=== PATIENT | male | born 1970 | race Caucasian/White ===

== ENCOUNTER 2024-03-21 09:23 | Outpatient (AMB) | payer MEDICAID, SELFPAY ==
[2024-03-21 09:30] VITALS: BP 154/80; PULSE 72; RESP 16; TEMP 36.2; O2SAT 98; BMI 34.3
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
== END 2024-03-21 10:43 | disposition home or self-care (01) ==
LOC: HODAHC 09:23
PROVIDERS: PCP Student in an Organized Health Care Education/Training Program; Referring Provider Student in an Organized Health Care Education/Training Program; Supervising Provider Internal Medicine; Visit Provider Student in an Organized Health Care Education/Training Program
DX: I69.354 Hemiplegia and hemiparesis following cerebral infarction affecting left non-dominant side (principal); R73.03 Prediabetes; I10 Essential (primary) hypertension; E78.5 Hyperlipidemia, unspecified; Z79.82 Long term (current) use of aspirin; Z79.02 Long term (current) use of antithrombotics/antiplatelets; Z76.0 Encounter for issue of repeat prescription
CPT/HCPCS: 99213; G0463

== ENCOUNTER 2024-08-02 08:56 | Outpatient (AMB) | payer MEDICAID, SELFPAY ==
[2024-08-02 09:22] VITALS: BP 128/80; PULSE 71; RESP 18; TEMP 36.6; O2SAT 98; BMI 35.2
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
== END 2024-08-02 10:02 | disposition home or self-care (01) ==
PROVIDERS: PCP Student in an Organized Health Care Education/Training Program; Referring Provider Student in an Organized Health Care Education/Training Program; Supervising Provider Internal Medicine
DX: I10 Essential (primary) hypertension (principal); E78.5 Hyperlipidemia, unspecified; Z86.73 Personal history of transient ischemic attack (TIA), and cerebral infarction without residual deficits; R73.03 Prediabetes; E66.9 Obesity, unspecified; Z68.35 Body mass index [BMI] 35.0-35.9, adult; R25.2 Cramp and spasm; R32 Unspecified urinary incontinence
CPT/HCPCS: 99213; G0463

== ENCOUNTER 2024-08-20 13:12 | Outpatient (AMB) | payer MEDICAID, SELFPAY ==
[2024-08-20 13:36] VITALS: BP 143/81; PULSE 74; RESP 18; TEMP 36.6; O2SAT 97; BMI 35.9
--- NOTE | 2024-08-20 13:36 | ACNOTE_ITS ---
Vital Signs 08/20/24 13:36 Height 1.85 m Height Method Stated Weight 123.037 kg Weight Measurement Method Standing Scale BMI 35.9 BP 143/81 H Blood Pressure Source Automatic Cuff Blood Pressure Location Right Upper Arm Position Sitting Respiration 18 Pulse 74 Pulse Source Monitor Temp 97.8 F Temp Source Temporal Artery Scan Pulse Oximetry (%) 97 Oxygen Delivery Method Room Air Allergies/Meds Allergies & Medications Allergies acetaminophen (From Vicodin) Allergy (Verified 08/02/24 09:23) hydrocodone (From Vicodin) Allergy (Verified 08/02/24 09:23) Medication Reconciliation amlodipine 5 mg tablet 5 mg PO QDAY #30 tabs 08/02/24 [Rx Confirmed 08/22/24] aspirin 81 mg tablet,delayed release (Adult Aspirin Regimen) 81 mg PO QDAY #30 tabs 08/02/24 [Rx Confirmed 08/22/24] pen needle, diabetic 32 gauge x 1/4 (Comfort EZ Pen [place]) #100 ea 08/02/24 [Rx Confirmed 08/22/24] rosuvastatin 20 mg tablet (Crestor) 40 mg (2 x 20 mg) PO QDAY 1 month #60 tabs 08/02/24 [Rx Confirmed 08/22/24] semaglutide 0.25 mg or 0.5 mg (2 mg/3 mL) subcutaneous pen injector (Ozempic) 0.25 mg (0.368 mL) subcut QWEEK 1 month #3 mL 08/02/24 [Rx Confirmed 08/22/24] cetirizine 10 mg capsule (Zyrtec) 10 mg PO QDAY Seasonal Allergies 1 month #30 caps 08/20/24 [Rx Confirmed 08/22/24] fluticasone propionate 50 mcg/actuation nasal spray,suspension (Flonase Allergy Relief) 1 spray intranasal BID 1 month #16 grams 08/20/24 [Rx Confirmed 08/22/24] gabapentin 100 mg capsule 100 mg PO QHS 1 month #30 caps 08/20/24 [Rx Confirmed 08/22/24] losartan 50 mg tablet 50 mg PO QDAY 1 month #30 tabs 08/20/24 [Rx Confirmed 08/22/24] tamsulosin 0.4 mg capsule (Flomax) 0.4 mg PO QHS 1 month #30 caps 08/20/24 [Rx Confirmed 08/22/24] evolocumab 140 mg/mL subcutaneous pen injector (Geoff Vallejo) 420 mg (3 mL) subcut QMONTH Statin intolerance, Hyperlipidemia 1 month #2 mL 08/27/24 [Rx] finasteride 5 mg tablet 5 mg PO QDAY 1 month #30 tabs 08/27/24 [Rx] MA Intake Visit Data Collection New Patient or Established: Established Patient (seen at [facility] within 3 years) Seen by Clinical Staff ONLY (RN/MA): No Pain Present Currently: No Pain scale:: 0 Pain Scale Used: [employer] Required: No PCP or OBGYN visit in last 3 months: Yes Hx Now: No Do You Feel Safe at Home: Yes Authorities Contacted: N/A Smoking Status Smoking Status: Never smoker Immunization / Flu Flu Vaccine in the Last 12 Months: No Flu Vaccine Exclusion Criteria: No Exclusion Criteria Past Medical History Past Medical History NEUROLOGIC: Positive Cerebrovascular Accident CARDIAC: Positive Hypercholesterolemia and Hypertension GENITOURINARY: Positive Benign Prostatic Hyperplasia Social History SMOKING STATUS: Smoking status: Never smoker Patient Portal Questionaires Social History Tobacco History Smoking Status: Never smoker Domestic Abuse History Do You Feel Safe at Home: Yes Review of Systems Report any current symptoms Only answer those that you have currently: Past Medical History Past Medical History Have you ever been diagnosed with any of the following: Neurological Problems Cerebrovascular Accident (CVA): Yes Cardiology Problems Hypercholesterolemia: Yes Hypertension: Yes Genital/Urinary Problems Benign Prostatic Hyperplasia: Yes History of Present Illness HPI Narrative Pt here for a follow up with labs. Reports he is taking his medicines as prescribed, still expressing some statin myopathy. He is wondering about getting referred to a sleep medicine specialist. He says he did not get his Gabapentin. Reports that he is still having trouble peeing, and was not able to do his urine labs. No other complaints at this time. Review of Systems Review of Systems Narrative Review of Systems: Constitutional: No fever, chills, fatigue, weakness, weight loss, +fatigue HEENT: No eye pain, vision loss, ear pain, hearing loss, dysphagia, Cardiovascular: No chest pain, palpitations, edema, pain with walking Respiratory: No cough, wheezing, + SOB GI: No NVD, abdominal pain, constipation, blood in stool, loss of appetite, heartburn Extremities: +swelling in legs, +leg cramps MSK: No back pain, joint pain, joint swelling, + neck pain Neuro: No dizziness, numbness, weakness, headaches, seizures, tremors Psych: No anxiety, depression Objective/Exam Narrative Physical exam: General: AAOx3, NAD, obese pleasant male HEENT: Moist mucous membranes, conjunctiva clear, EOMI, PERRLA, Cardiovascular: S1, S2, radial pulses +2 bilat, RRR Pulmonary: CTAB bilat no cough, no wheezing GI: No tenderness to light or deep palpitation, no guarding, rigidity, rebound tenderness or distension Extremities: trace edema in lower extremities bilaterally, dorsalis pedis pulses +2 bilaterally Neuro: AAOx3, no focal motor or sensory deficits in the UE or LE bilat Psych: Good judgement, thought and behavior. 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 A1c of 6.2 Plan: Primary prevention Will consider diabetic foot exam next visit Repeat Urine Microalbumin Continue Ozempic 0.25 mg inj once a week (2) CVA (cerebral vascular accident): Status: Acute Qualifiers: CVA mechanism: unspecified Qualified Code(s): I63.9 - Cerebral infarction, unspecified Assessment & Plan: Posterior infarct 16mm at [facility] Plan: Continuing Aspirin and statin at this time (3) Hypertension: Status: Acute Qualifiers: Hypertension type: primary hypertension Qualified Code(s): I10 - Essential (primary) hypertension Plan: Continuing Amloidpine Stop lisinopril because of cough Start Losartan 50 mg Blood pressure log Flomax 0.4 mg HS Cardiology referral (4) Hyperlipidemia: Status: Acute Qualifiers: Hyperlipidemia type: unspecified Qualified Code(s): E78.5 - Hyperlipidemia, unspecified Assessment & Plan: Expresses statin mylagias LDL still 74, willl require further optimzation due to CVA hx Previous LDL was 160 Plan: Continue Crestor 20 mg Repatha ordered 420 mg sureclick Inj (twice a week) (5) Encounter for screening colonoscopy: Status: Acute Assessment & Plan: Hgb 12.2 No hx of Colonoscopy No hx of colon cancer in family Plan: FOBT Pending GI referral (6) Statin intolerance: Status: Acute Plan: Repatha ordered as above (7) Obesity (BMI 30.0-34.9): Status: Acute Plan: Continue Ozempic 0.25 mg inj once a week Sleep study (8) Anemia of chronic disease: Status: Acute Assessment & Plan: Ferritin elevated (420s) Normal Iron Hgb 12.2 Plan: Repeat CBC upon next visit PBS Reticulocyte count (9) Urinary dribbling: Status: Acute Plan: Flomax 0.4 mg HS (10) Allergies: Status: Acute Assessment & Plan: With congestion Plan: Flonase and Zyrtec as needed Orders: Orders Occult Blood, Stool (LAB) 08/20/24 Comprehensive Metabolic Panel 08/20/24 Z00.01 - Encounter for general adult medical examination with abnormal findings Urinalysis 08/20/24 Microalbumin, 24hr Urine 08/20/24 Reticulocyte Count 08/20/24 CBC 08/20/24 Path Review Blood Smear 08/20/24 Magnesium 08/20/24 Z00.01 - Encounter for general adult medical examination with abnormal findings Referrals Cardiology E66.811 - Obesity, class 1, E78.5 - Hyperlipidemia, unspecified, I10 - Essential (primary) hypertension, I63.9 - Cerebral infarction, unspecified, R73.03 - Prediabetes Gastroenterology Z12.11 - Encounter for screening for malignant neoplasm of colon Sleep Study Additional Assessment Attending note: I, Keanu Sue MD, attest that I was physically present for the quijano portions of the service and evaluated the patient with the resident and I reviewed and discussed the case with the resident and agree with the resident's findings and plans of care as documented above. Keanu Sue MD Physician Billing Established Patient Established Patient: E/M Level 3-CPT 25457 Office Procedures [facility] Level of Care Nursing/Assessment Patient Status: Established Patient Nursing Assessment/Reassessment: Medication Reconciliation, Update PMH in EMR and Vital Signs Coordination of Care: Complex Care and Chronic Disease 1-5, Consent,records obtained, informed consent, Education Simp Pt/Fam, Results/Orders obtained and Staff clarify orders Established Patient Charge Established Patient Point Assignment: 90 Established Patient Point Charge: Level 3 (80-115) Results Glucose Glucose 125 mg/dL Last Edit by Ashley Espinosa MA on 08/20/24 14:45
== END 2024-08-20 15:15 | disposition home or self-care (01) ==
LOC: HODAHC 13:12
PROVIDERS: PCP Student in an Organized Health Care Education/Training Program; Referring Provider Student in an Organized Health Care Education/Training Program; Supervising Provider Internal Medicine
DX: Z71.2 Person consulting for explanation of examination or test findings (principal); G72.9 Myopathy, unspecified; R39.198 Other difficulties with micturition; R73.03 Prediabetes; Z86.73 Personal history of transient ischemic attack (TIA), and cerebral infarction without residual deficits; Z79.82 Long term (current) use of aspirin; I10 Essential (primary) hypertension; E78.5 Hyperlipidemia, unspecified; Z79.85 Long-term (current) use of injectable non-insulin antidiabetic drugs; D63.8 Anemia in other chronic diseases classified elsewhere; T78.40XA Allergy, unspecified, initial encounter; X58.XXXA Exposure to other specified factors, initial encounter; E66.9 Obesity, unspecified; Z68.35 Body mass index [BMI] 35.0-35.9, adult
CPT/HCPCS: 99213; G0463

== ENCOUNTER 2024-08-27 15:24 | Outpatient (AMB) | payer MEDICAID, SELFPAY ==
--- NOTE | 2024-08-27 17:44 | PD.RESCLINIC ---
Allergies/Meds Allergies & Medications Allergies acetaminophen (From Vicodin) Allergy (Verified 08/02/24 09:23) hydrocodone (From Vicodin) Allergy (Verified 08/02/24 09:23) [place] Intake Visit Data Collection PCP or OBGYN visit in last 3 months: Yes Smoking Status Smoking Status: Never smoker For Televisit only Telemed Video/Phone Visit: Yes Verbal consent obtained for Telemed visit?: Yes Verbal Consent witness name: MARISA RITA LOPEZ Telemed Video/Phone visit w/Clinical Staff: 21-30 min Immunization / Flu Flu Vaccine in the Last 12 Months: No Flu Vaccine Exclusion Criteria: No Exclusion Criteria Past Medical History Past Medical History NEUROLOGIC: Positive Cerebrovascular Accident CARDIAC: Positive Hypercholesterolemia and Hypertension GENITOURINARY: Positive Benign Prostatic Hyperplasia Social History SMOKING STATUS: Smoking status: Never smoker Patient Portal Questionaires Social History Tobacco History Smoking Status: Never smoker Review of Systems Report any current symptoms Only answer those that you have currently: Past Medical History Past Medical History Have you ever been diagnosed with any of the following: Neurological Problems Cerebrovascular Accident (CVA): Yes Cardiology Problems Hypercholesterolemia: Yes Hypertension: Yes Genital/Urinary Problems Benign Prostatic Hyperplasia: Yes History of Present Illness HPI Narrative Patient interaction conducted via telephone. Patient reports doing well. He is complaining that the Flomax is not not relieving all his urinary symptoms symptoms. He is also reporting that he was not able to get his Repatha injection. He is also saying that the gabapentin makes him sleepy and that he is going to continue to take magnesium glycinate for his leg cramps. Said he was able to get his labs done he will follow-up with me on his next visit. No other complaints this time Review of Systems Review of Systems Narrative Review of Systems: Constitutional: No fever, chills, + fatigue, no weakness, weight loss HEENT: No eye pain, vision loss, ear pain, hearing loss, dysphagia, Cardiovascular: No chest pain, palpitations, edema, pain with walking Respiratory: No cough, shortness of breath, wheezing GI: No NVD, abdominal pain, constipation, blood in stool, loss of appetite, heartburn : + urinary dribbling Extremities: No presence of pitting edema, + leg pain bilat MSK: No back pain, joint pain, joint swelling Neuro: No dizziness, numbness, weakness, headaches, seizures, tremors Psych: No anxiety, depression Objective/Exam Narrative Physical exam: Physical exam is limited as patient is out in the office General: NAD Pulmonary: No exertional dyspnea Assessment & Plan Diagnosis / Problem List (1) Urinary dribbling: Status: Acute Assessment & Plan: His symptoms have not improved with Flomax 0.4 mg at night Patient's PSA baseline is unremarkable and this is found on [facility] Patient will need additional agent in conjunction with Flomax Plan: ? Continue Flomax 0.4 mg by mouth at night ? Start finasteride 5 mg by mouth every day (2) Statin intolerance: Status: Acute Assessment & Plan: Patient was not able to receive Repatha as apparently the prescription was not sent Plan: ? Continue with Crestor 20 mg as able ? Repatha as prescribed (3) Hyperlipidemia: Status: Acute Qualifiers: Hyperlipidemia type: unspecified Qualified Code(s): E78.5 - Hyperlipidemia, unspecified Assessment & Plan: As above Plan: ? Continue with Crestor 20 mg as able ? 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
== END 2024-08-27 16:30 | disposition home or self-care (01) ==
LOC: HODAHC 15:24
PROVIDERS: PCP Student in an Organized Health Care Education/Training Program; Referring Provider Student in an Organized Health Care Education/Training Program
DX: N39.43 Post-void dribbling (principal); E78.5 Hyperlipidemia, unspecified
CPT/HCPCS: 99212; G0463

== ENCOUNTER 2024-09-17 13:31 | Outpatient (AMB) | payer MEDICAID, SELFPAY ==
[2024-09-17 13:56] VITALS: BP 149/79; PULSE 67; RESP 19; TEMP 36.5; O2SAT 97; BMI 36.9
--- NOTE | 2024-09-17 13:56 | ACNOTE_ITS ---
Vital Signs 09/17/24 13:56 Height 1.85 m Height Method Stated Weight 126.325 kg Weight Measurement Method Standing Scale BMI 36.9 BP 149/79 H Blood Pressure Source Automatic Cuff Blood Pressure Location Right Upper Arm Position Sitting Respiration 19 Pulse 67 Pulse Source Monitor Temp 97.7 F Temp Source Temporal Artery Scan Pulse Oximetry (%) 97 Oxygen Delivery Method Room Air Allergies/Meds Allergies & Medications Allergies acetaminophen (From Vicodin) Allergy (Verified 08/02/24 09:23) hydrocodone (From Vicodin) Allergy (Verified 08/02/24 09:23) MA Intake Visit Data Collection New Patient or Established: Established Patient (seen at [facility] within 3 years) Seen by Clinical Staff ONLY (RN/MA): No Reason for Visit:: FOLLOW UP Pain Present Currently: 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 PCP or OBGYN visit in last 3 months: Yes Date of Last PCP or OBGYN visit: 08/20/24 Do You Feel Safe at Home: Yes Authorities Contacted: N/A Smoking Status Smoking Status: Never smoker Immunization / Flu Flu Vaccine in the Last 12 Months: No Flu Vaccine Exclusion Criteria: No Exclusion Criteria Past Medical History Past Medical History NEUROLOGIC: Positive Cerebrovascular Accident CARDIAC: Positive Hypercholesterolemia and Hypertension GENITOURINARY: Positive Benign Prostatic Hyperplasia Social History SMOKING STATUS: Smoking status: Never smoker Patient Portal Questionaires Social History Tobacco History Smoking Status: Never smoker Domestic Abuse History Do You Feel Safe at Home: Yes Review of Systems Report any current symptoms Only answer those that you have currently: Past Medical History Past Medical History Have you ever been diagnosed with any of the following: Neurological Problems Cerebrovascular Accident (CVA): Yes Cardiology Problems Hypercholesterolemia: Yes Hypertension: Yes Genital/Urinary Problems Benign Prostatic Hyperplasia: Yes History of Present Illness HPI Narrative Patient examined at bedside today. Patient reports he is doing well. He is inquiring about Repatha at this time. He reports that he stopped taking his Flomax and his finasteride and his symptoms had resolved. He is also wondering when he is going to get his referral for cardiology, sleep medicine and GI. He is wondering about his most recent lab results. He is requesting some refills on medicines. Denies any chest pain or shortness of breath. No other complaints at this time. Review of Systems Review of Systems Narrative Review of Systems: Constitutional: No fever, chills, fatigue, weakness, weight loss HEENT: No eye pain, vision loss, ear pain, hearing loss, dysphagia, Cardiovascular: No chest pain, palpitations, edema, pain with walking Respiratory: No cough, shortness of breath, wheezing GI: No NVD, abdominal pain, constipation, blood in stool, loss of appetite, heartburn Extremities: No presence of pitting edema MSK: No back pain, joint pain, joint swelling Neuro: No dizziness, numbness, weakness, headaches, seizures, tremors Psych: No anxiety, depression Objective/Exam Narrative Physical exam: General: AAOx3, NAD, obese pleasant male HEENT: Moist mucous membranes, conjunctiva clear, EOMI, PERRLA, Cardiovascular: S1, S2, radial pulses +2 bilat, RRR Pulmonary: CTAB bilat no cough, no wheezing GI: No tenderness to light or deep palpitation, no guarding, rigidity, rebound tenderness or distension Extremities: trace edema in lower extremities bilaterally, dorsalis pedis pulses +2 bilaterally Neuro: AAOx3, no focal motor or sensory deficits in the UE or LE bilat Psych: Good judgement, thought and behavior. Cooperative Assessment & Plan Diagnosis / Problem List (1) Vitamin D deficiency: Status: Acute Assessment & Plan: Vitamin D deficient seen on previous labs Plan: Vitamin D3 50,000 units capsule once a week Will reassess within 3 months (2) Erectile disorder: Status: Acute Assessment & Plan: Patient reports having some trouble with erection Plan: Tadalafil 10 mg by mouth as needed (3) Rhinitis: Status: Acute Qualifiers: Rhinitis type: chronic Qualified Code(s): J31.0 - Chronic rhinitis Assessment & Plan: Chronic, on H2 ajay and Flonase Plan: Continue with Zyrtec and Flonase Add Singulair 10 mg every day ENT referral (4) Statin intolerance: Status: Acute Plan: Sent over Repatha injection every 2 weeks (5) Anemia of chronic disease: Status: Acute Plan: CBC upon next visit Peripheral blood smear (6) Hypertension: Status: Acute Qualifiers: Hypertension type: primary hypertension Qualified Code(s): I10 - Essential (primary) hypertension Assessment & Plan: SBP 148 Plan: Continuing with amlodipine 5 mg every day Increasing losartan to 100 mg by mouth every day (7) Chronic fatigue: Status: Acute Plan: Repeat CBC for anemia Will repeat TSH within 3 months B12 oral prescribed (8) Obesity (BMI 30.0-34.9): Status: Acute Assessment & Plan: Currently on Ozempic 0.25 mg injection once a week Plan: Encouraging diet and exercise Will increase Ozempic to 0.5 mg injection once a week Orders: Orders CBC 1 Month Path Review Blood Smear 1 Month Referrals Ears, Nose, and Throat J31.0 - Chronic rhinitis Office Procedures [facility] Level of Care Nursing/Assessment Patient Status: Established Patient Nursing Assessment/Reassessment: Medication Reconciliation, Update PMH in EMR and Vital Signs Coordination of Care: Complex Care and Chronic Disease 1-5, Consent,records obtained, informed consent, 4+ Authorizations needed, Lab and Imaging orders and Results/Orders obtained Established Patient Charge Established Patient Point Assignment: 105 Established Patient Point Charge: Level 3 (80-115)
== END 2024-09-17 14:59 | disposition home or self-care (01) ==
LOC: HODAHC 13:31
PROVIDERS: PCP Student in an Organized Health Care Education/Training Program; Referring Provider Student in an Organized Health Care Education/Training Program; Supervising Provider Internal Medicine
DX: E53.8 Deficiency of other specified B group vitamins (principal); N52.9 Male erectile dysfunction, unspecified; J31.0 Chronic rhinitis; D63.8 Anemia in other chronic diseases classified elsewhere; I10 Essential (primary) hypertension; E66.9 Obesity, unspecified; Z68.36 Body mass index [BMI] 36.0-36.9, adult; Z76.0 Encounter for issue of repeat prescription; Z71.3 Dietary counseling and surveillance
CPT/HCPCS: 99213; G0463

== ENCOUNTER 2024-10-31 14:46 | Outpatient (AMB) | payer MEDICAID, SELFPAY ==
[2024-10-31 14:56] VITALS: BP 160/90; PULSE 73; RESP 18; TEMP 36.5; O2SAT 97; BMI 36.1
--- NOTE | 2024-10-31 14:56 | ACNOTE_ITS ---
<Statement entered by Donaldo Cuevas MD - 11/07/24 14:35> Attending note: I, Donaldo Cuevas MD, attest that I was physically present for the quijano portions of the service and evaluated the patient with the resident and I reviewed and discussed the case with the resident and agree with the resident's findings and plans of care as documented above. Vital Signs 10/31/24 14:56 Height 1.85 m Height Method Stated Weight 123.604 kg Weight Measurement Method Standing Scale BMI 36.1 BP 160/90 H Blood Pressure Source Automatic Cuff Blood Pressure Location Right Upper Arm Position Sitting Respiration 18 Pulse 73 Pulse Source Monitor Temp 97.7 F Temp Source Temporal Artery Scan Pulse Oximetry (%) 97 Oxygen Delivery Method Room Air Allergies/Meds Allergies & Medications Allergies acetaminophen (From Vicodin) Allergy (Verified 08/02/24 09:23) hydrocodone (From Vicodin) Allergy (Verified 08/02/24 09:23) MA Intake Visit Data Collection New Patient or Established: Established Patient (seen at [facility] within 3 years) Seen by Clinical Staff ONLY (RN/MA): No Reason for Visit:: follow up Pain Present Currently: 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 PCP or OBGYN visit in last 3 months: Yes Date of Last PCP or OBGYN visit: 09/17/24 Do You Feel Safe at Home: Yes Authorities Contacted: N/A Smoking Status Smoking Status: Never smoker Immunization / Flu Flu Vaccine in the Last 12 Months: No Flu Vaccine Exclusion Criteria: No Exclusion Criteria Past Medical History Past Medical History NEUROLOGIC: Positive Cerebrovascular Accident CARDIAC: Positive Hypercholesterolemia and Hypertension GENITOURINARY: Positive Benign Prostatic Hyperplasia Social History SMOKING STATUS: Smoking status: Never smoker Patient Portal Questionaires Social History Tobacco History Smoking Status: Never smoker Domestic Abuse History Do You Feel Safe at Home: Yes Review of Systems Report any current symptoms Only answer those that you have currently: Past Medical History Past Medical History Have you ever been diagnosed with any of the following: Neurological Problems Cerebrovascular Accident (CVA): Yes Cardiology Problems Hypercholesterolemia: Yes Hypertension: Yes Genital/Urinary Problems Benign Prostatic Hyperplasia: Yes History of Present Illness HPI Narrative Salvador is a 54 y/o male who comes in for follow up from last visit. Says he seen Dr. Larsen, cardiology and was started on Plavix, unsure why he was put on it, however will get echo, stress test and Carotid duplex. He also says that he has been taking mag citrate for constipation. He has no changes to his blood pressure medicines. He is complaining more of neuropathy in LE bilat at this time. No other complaints at this time. Pending GI referral authorization at this time. Approved for ENT, Dr. Muller, will call for appointment. Pending Authorization for sleep study Review of Systems Review of Systems Narrative Review of Systems: 12 point ROS reviewed and is otherwise negative unless stated directly in the HPI Objective/Exam Narrative Physical exam: General: AAOx3, NAD, obese pleasant male HEENT: Moist mucous membranes, conjunctiva clear, EOMI, PERRLA, Cardiovascular: S1, S2, radial pulses +2 bilat, RRR Pulmonary: CTAB bilat no cough, no wheezing GI: No tenderness to light or deep palpitation, no guarding, rigidity, rebound tenderness or distension Extremities: trace edema in lower extremities bilaterally, dorsalis pedis pulses +2 bilaterally, diabetic monofilament test +, multiple areas of neuropathy in LE bilat, negative straight leg test Neuro: AAOx3, no focal motor or sensory deficits in the UE or LE bilat Psych: Good judgement, thought and behavior. Cooperative Assessment & Plan Diagnosis / Problem List (1) Hypertension: Status: Acute Qualifiers: Hypertension type: primary hypertension Qualified Code(s): I10 - Essential (primary) hypertension Assessment & Plan: SBP 160 Plan: Increased to Amlodipine 10 mg (2) Pre-diabetes: Status: Acute Plan: Increasing Ozempic 1 mg once a week (3) Obesity (BMI 30.0-34.9): Status: Acute Plan: Increasing Ozempic 1 mg once a week Daily Weights (4) Constipation: Status: Acute Plan: Colace and Miralax PRN (5) Hyperlipidemia: Status: Acute Qualifiers: Hyperlipidemia type: unspecified Qualified Code(s): E78.5 - Hyperlipidemia, unspecified Plan: Crestor 10 mg started by documentation specialist Continue Repatha Injection (6) Diabetic neuropathy: Status: Acute Assessment & Plan: Positive Monofilament test Plan: Gabapentin 100 mg Hs (7) Anemia of chronic disease: Status: Acute Assessment & Plan: Hgb 11.8 in September seen on [facility] Ferritin was not faxed however Plan: Consider repeat Ferritin study Pending GI referral Office Procedures [facility] Level of Care Nursing/Assessment Patient Status: Established Patient Nursing Assessment/Reassessment: Medication Reconciliation, Update PMH in EMR and Vital Signs Coordination of Care: Complex Care and Chronic Disease 1-5, Consent,records obtained, informed consent, Lab and Imaging orders and Results/Orders obtained Established Patient Charge Established Patient Point Assignment: 80 Established Patient Point Charge: Level 3 (80-115)
== END 2024-10-31 15:59 | disposition home or self-care (01) ==
LOC: HODAHC 14:46
PROVIDERS: Supervising Provider Internal Medicine
DX: I10 Essential (primary) hypertension (principal); K59.00 Constipation, unspecified; E66.9 Obesity, unspecified; Z68.36 Body mass index [BMI] 36.0-36.9, adult; E78.5 Hyperlipidemia, unspecified; E11.40 Type 2 diabetes mellitus with diabetic neuropathy, unspecified; D63.8 Anemia in other chronic diseases classified elsewhere
CPT/HCPCS: 99213; G0463